=== PATIENT | female | born 2000 | race Caucasian/White ===

== ENCOUNTER 2024-03-22 03:03 | Inpatient (IN) | payer SELFPAY, OTHER ==
[2024-03-22] VITALS (17 sets, daily range): BP systolic 84–112; BP diastolic 45–66; PULSE 57–77; RESP 14–18; TEMP 36.1–37.2; O2SAT 14–100; BMI 27.8
[2024-03-22] MEDS: Lactated Ringers 1,000 ML 999 ML IV ×3 (03:09→05:36)
[2024-03-22] MEDS: Betamethasone/Betamethasone 30 MG/5 ML Vial 12 MG IM (03:09)
[2024-03-22 03:29] LABS: Absolute Lymphocyte Count 1.51 X10^3/uL (0.83-4.51); Absolute Neutrophil Count 13.2 X10^3/uL (2.0-7.7); Basophil# 0.05 X10^3/uL; Basophil% 0.3 % (0-1); Eosinophil# 0.02 X10^3/uL; Eosinophils% 0.1 % (0-5); Hematocrit 37.8 % (37-47); Hemoglobin 12.5 g/dL (12.0-15.0); Lymphocyte # 1.51 X10^3/ul (0.83-4.51); Lymphocyte % 9.5 % (19-41); Mean Corp Hgb Conc 33.1 g/dL (32-36); Mean Corpuscular Hgb 28.6 pg (27.0-32.0); Mean Corpuscular Volume 86.5 fL (81-99); Mean Platelet Vol. 10.3 fl (6.2-12.0); Monocyte# 0.99 X10^3/uL; Monocyte% 6.2 % (0-10); NRBC Flagged by Analyzer 0 % (0-5); Neutrophil # 13.16 X10^3/uL (2.7-7.7); Neutrophil % 82.8 % (47-70); Platelet Count 238 K/mm3 (150-450); RBC Distribution Width CV 13.4 % (11.6-14.6); RBC Distribution Width SD 41.7 fl (35.1-43.9); Red Blood Count 4.37 M/mm3 (4.2-5.4); White Blood Count 15.9 K/mm3 (4.4-11.0)
[2024-03-22 03:47] LABS: ALB/GLOB Ratio 0.7 RATIO (0.9-2.4); AST(SGOT) 34 U/L (15-37); Alanine Aminotransfer ALT/SGPT 42 U/L (13-56); Albumin, Serum 2.9 g/dL (3.2-5.0); Alkaline Phosphatase 94 U/L (45-117); Anion Gap 10 (5-15); BUN 6 mg/dL (7-18); BUN/Creat Ratio 12.7 RATIO (10-20); Calcium,Total 9.1 mg/dL (8.5-10.1); Chloride 105 mmol/L (98-107); Creatinine, Serum 0.47 mg/dL (0.55-1.02); EST Glomerular Filtration Rate 169 mL/min (>60); Est Glom Filt Rate - Afr Amer 205 mL/min (>60); Estimated Creatinine Clearance 166.81 ml/min; Globulin 4.3 g/dL (2.2-4.2); Glucose 93 mg/dL (74-106); Potassium 3.5 mmol/L (3.5-5.1); Protein, Total 7.2 g/dL (6.4-8.2); Sodium Level 136 mmol/L (136-145)
[2024-03-22 04:04] LABS: Syphilis Antibodies Non-reactive
[2024-03-22 04:18] LABS: Color, Urine Yellow (Yellow); Glucose, Dipstick Normal (Normal); Leukocyte Esterase-Dipstick Negative /ul (Negative); Nitrite-Dipstick Negative (Negative); Occult Blood-Urine Negative /ul (Negative); Protein-Dipstick 15 mg/dl (Negative); Urine Bilirubin Dipstick Negative (Negative); Urine Clarity Clear (Clear); Urine Urobilinogen Normal (Normal)
[2024-03-22 04:20] LABS: Ketone-Dipstick 150 mg/dl (Negative)
[2024-03-22] MEDS: Ampicillin 2 GM in 0.9% Normal Saline (100mL MB+) 100 ML IV (04:27)
--- NOTE | 2024-03-22 05:30 | HP.PCM.OB_ITS ---
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 She denies any vaginal bleeding or loss of fluid and has been temo since 6:00 last night. Upon initial presentation she had a heart rate deceleration down into the 50s x 2 minutes bedside ultrasound parameters unable to obtain AC but BPD and HC measuring 32 to 33 weeks PFSH PFSH Home Medications ?Medication ?Instructions ?Recorded ?Last Taken ?Type vit no.95-ferrous 1 tab PO DAILY 03/22/24 03/21/24 History fumarate 28 mg-folic acid 800 mcg tablet () Allergy/AdvReac Type Severity Reaction Status Date / Time No Known Allergies Allergy Verified 03/22/24 03:06 Social History Smoking Status: Former smoker History Elective abortions Hx Para 0 Spontaneous abortions Hx # Term Pregnancies Ectopic pregnancies Hx # Pregnancies Multiple births # of living children NST FHR Rate Baby A Baseline: 140-160 Variability:: Minimal (to moderate) Accelerations:: 15 x 15 Decelerations:: Variable and Prolonged NST Reactive:: Yes FHR Category:: Category II Uterine Activity:: q 2-3 ROS Constitutional Constitutional: Reports systems reviewed and no addt'l complaints, except as documented ENT HEENT: Reports systems reviewed and no addt'l complaints, except as documented Cardiovascular Cardiovascular: Reports systems reviewed and no addt'l complaints, except as documented Respiratory/Chest Respiratory/Chest: Reports systems reviewed and no addt'l complaints, except as documented Gastrointestinal Gastrointestinal: Reports systems reviewed and no addt'l complaints, except as documented and nausea; Denies abdominal pain Genitourinary Genitourinary: Reports systems reviewed and no addt'l complaints, except as docu mented, contractions Details: present and frequency (regular ) and movement Details: present Musculoskeletal Musculoskeletal: Reports systems reviewed and no addt'l complaints, except as documented Integumentary Integumentary: Reports as per HPI Neurologic Neurologic: Reports systems reviewed and no addt'l complaints, except as documented Endocrine Endocrinology: Reports systems reviewed and no addt'l complaints, except as documented Vital Signs Vital Signs Vital Signs: 03/22/24 02:50 03/22/24 02:50 03/22/24 02:50 Temperature Temperature Source Temporal Pulse Rate 75 Respiratory Rate Blood Pressure 112/65 BP Systolic 112 BP Diastolic 65 03/22/24 02:50 03/22/24 02:50 Temperature 97.0 F L Temperature Source Pulse Rate Respiratory Rate 18 Blood Pressure BP Systolic BP Diastolic Weight Weight: 152 lb 9.6 oz Body Mass Index (BMI) 27.8 Physical Exam Const alert, oriented x3 and healthy appearing Constitutional Narrative: uncomfortable with contractions HEENT normocephalic and moist oral mucous membranes Head and Scalp: atraumatic Neck full ROM, no lymphadenopathy, supple and thyroid normal General: trachea midline Thyroid: thyroid normal Lymph Lymphatic: no lymphadenopathy noted Chest inspection of chest normal Resp normal respiratory effort Cardio regular rate GI normal to inspection, nondistended, normoactive bowel sounds, soft to palpation and non-tender Inspection: gravid external exam normal Bimanual Exam - Vag & Uterus: uterus non-tender Manual OB Exam: estimated gestational size appropriate, presentation cephalic, dilated 5, effaced 90 and station -2 Extremity normal to inspection General Extremity: Negative for edema Skin no rashes or lesions noted Neuro deep tendon reflexes 2+ bilaterally Motor Exam: strength 5/5 throughout and clonus absent Psych mental status grossly normal Labs Labs Labs: Blood Type AB NEGATIVE Antibody Screen NEGATIVE Hct 37.8 % (37-47) Hgb 12.5 g/dL (12.0-15.0) Syphilis Total Ab Non-reactive Rubella IgG Antibody Pending Hep Bs Antigen Pending Hepatitis C Antibody Pending HIV 1&2 Antibody Pending Assessment & Plan (1) Limited care in third trimester: (2) 35 weeks gestation of : (3) Category II heart rate tracing during labor and delivery: (4) labor: PLAN: Plan Admit Celestone given, CBC type and screen CMP fibrinogen. Ampicillin given. Initial expectant management. IV fluids given and heart rate stabilized enough for monitoring. Prepare for vaginal delivery or if recurrent decelerations.
[2024-03-22 05:43] LABS: International Normalized Ratio 1.1; Prothrombin Time (Protime)PT. 13.7 SECONDS (11.7-14.9)
[2024-03-22 05:44] LABS: Fibrinogen 682 mg/dl (203-444); Partial Thromboplast Time 35.7 Seconds (24.1-36.2)
[2024-03-22] MEDS: Sodium Citrate/Citric Acid 30 ML UDC PO (05:52)
[2024-03-22] MEDS: Cefazolin 2 GM in 0.9% Normal Saline (100mL Bag) 100 ML IV (06:11)
[2024-03-22] MEDS: Azithromycin 500 MG in Dextrose 5%-Water (250mL Bag) 250 ML 250 MG IV (06:54)
[2024-03-22] MEDS: Ketorolac 30 MG/ML Syringe IV ×3 (07:34→19:23)
[2024-03-22] MEDS: HYDROmorphone 1 MG/ML Syringe IV ×2 (07:34→12:04)
[2024-03-22] MEDS: Oxytocin 15 Units/NS 250ml 15 UNITS/250 ML IV.SOLN 83 UNITS IV (07:38)
--- NOTE | 2024-03-22 07:49 | OP.PCM_ITS ---
Assessment & Plan (1) Category II heart rate tracing during labor and delivery: (2) labor: (3) 35 weeks gestation of : (4) Limited care in third trimester: Maternal Data Information Final MICHAEL Source: LMP Details Operative Information Date of Procedure: 03/22/24 Pre-Operative Diagnosis: see a/p diagnoses Post-Operative Diagnosis: same Indications Narrative: surgeon: Kristan Levin MD Classification: [id number] Procedure Type: low transverse fuel cell repairer #2: Yris Vásquez Type of Anesthesia: General Special Medications: none Drain: Aaron to straight drain Estimated Blood Loss: 800 Fluids Replaced: crystalloid Procedure Start Time: 05:55 Procedure Stop Time: 07:05 Findings Description of Procedure: The patient was placed in the dorsal supine position with leftward tilt. Patient was prepped and draped in the normal sterile fashion. General anesthesia was induced and patient intubated. Pfannenstiel skin incision was made with the scalpel and carried through to the underlying layer of fascia with the scalpel. Fascia was nicked in the midline and the incision extended laterally. The peritoneum was entered digitally. The incision was stretched and a low transverse uterine incision was made with the scalpel. The infant's head was delivered atraumatically followed by the anterior and posterior shoulders without complication the rest of the delivered. The cord was clamped and cut and the infant was handed off to awaiting nurse. The placenta was delivered spontaneously immediately following and was noted to be intact and have a three-vessel cord. The uterus was exteriorized cleared of all clots and debris, and the incision was closed in a single layer closure using #1 Monocryl. The ovaries and fallopian tubes were noted to be within normal limits. The uterus was returned to the maternal abdomen and gutters were cleared of all clots and debris. The peritoneum was closed with 3-0 Monocryl in a running fashion. Fascia was closed with 0 PDS in a running fashion. Subcutaneous tissue was copiously irrigated and the skin was closed with 3-0 Monocryl in a subcuticular fashion. Mepilex dressing was applied without complication. Patient was taken to recovery in stable condition. It was discussed with the patient that based on the clinical information obtained during this encounter, combined with her history, at this time I would recommend vaginal or for future deliveries if further pregnancies are desired. Placental Delivery Description: Spontaneous Placenta Disposition: [facility] Cord Vessel Description: 3 Vessels Delayed Cord Clamping: No Complications Risks of Surgery Discussed w/Patient: Bleeding, Infection, Need for Future C- Sections and Injury to surrounding structure(s) including bowel and bladder Complications: none Admit VTE Documentation VTE Present on Admission: No VTE Mechan Device Prophylaxis: SCD's Procedures Urinary/Genital [id number]: 16257 delivery+PP Care([facility])
--- NOTE | 2024-03-22 07:49 | PCM.PN.BLA ---
Progress Note Recurrent late decelerations despite IV fluids artificial rupture membranes for thick meconium patient 6 to 7 cm dilated multiple position changes attempted decision made for primary low-transverse .
--- NOTE | 2024-03-22 07:53 | DCINST_ITS ---
Discharge Instructions Diet Discharge Diet: No restrictions Activity Discharge Activity: May Not Drive (for 2 weeks or while taking narcotic pain medications.), May Shower and May Take a Tub Bath (in 7 days) May shower in (days): 0 May resume sexual activity in: 4-6 weeks Weight Bearing Status: Full weight bearing Lifting Restrictions: 20 pounds Dressing / Incision Call your doctor if your incision/area has: Continuous Slow Oozing, Sudden Increased Bleeding, Increased Pain/ Swelling, Increased Redness and Foul Smelling Discharge Call your doctor if you observe: Fever of 101 or Higher and Using more than 1 pad per hour (for 2 hours) Suture Line Care: Avoid Pulling/Pushing and Avoid Pinching/Bending Cleanse incision/area with: Soap & Water and Keep Dressing Clean & Dry Follow Up Care Please Follow Up With: Kristan Levin MD When: Call [phone] to make an appointment for an incision check in 1-2 weeks. Test Results: Test results from this visit will be discussed in further detail at your follow- up appointment, if applicable. Discharge Plan Admission Admit Date/Time: 03/22/24 03:03 Attending Provider: Kristan Levin Primary Care Provider: Vanessa PhysicianAgnieszka Primary Discharge Orders/Prescriptions Prescriptions: New oxycodone-acetaminophen [Percocet] 5-325 mg tablet 1 tab PO Q6H PRN (Reason: pain) 7 Days Qty: 10 0RF naproxen 500 mg tablet 500 mg PO BID PRN PRN (Reason: Pain) Qty: 30 1RF No Action PNV cmb#95-ferrous fumarate-FA [] 28 mg iron- 800 mcg tablet 1 tab PO DAILY Referrals / Follow Up: Care PhysicianAgnieszka Primary [Primary Care Provider] - Disposition Disposition (needs filled in before D/C Order can be placed): Home, Self Care
[2024-03-22 08:08] LABS: HIV - WCH Non-Reactive (Nonreactive); Rubella IgG Non-Reactive (Nonreactive)
[2024-03-22 09:04] LABS: Hepatitis B Surface Antigen Non-Reactive (Nonreactive); Hepatitis C Antibody Non-Reactive (Nonreactive)
[2024-03-22] MEDS: Senna/Docusate Sodium 1 Tablet PO (09:08)
[2024-03-22] MEDS: Lactated Ringers 1,000 ML 100 ML IV (09:08)
[2024-03-22] MEDS: Acetaminophen 500 MG Tablet 1000 MG PO ×2 (12:04→17:53)
[2024-03-22] MEDS: Enoxaparin 40 MG/0.4 ML Syringe SC (17:53)
--- NOTE | 2024-03-22 18:53 | NURSING ---
Discussed with pt about Rubella non-immune status. VIS info given. Pt denies MMR.
[2024-03-22] MEDS: 0.9% Saline Lock 10 ML Syringe IV (19:23)
[2024-03-23 00:04] VITALS: BP 86/50; PULSE 64; RESP 16; TEMP 36.1; O2SAT 98
[2024-03-23] MEDS: Ketorolac 30 MG/ML Syringe IV (01:22)
[2024-03-23] MEDS: 0.9% Saline Lock 10 ML Syringe IV (01:22)
[2024-03-23 04:57] VITALS: BP 94/45; PULSE 66; RESP 16; TEMP 36.1; O2SAT 98
[2024-03-23] MEDS: Acetaminophen 500 MG Tablet 1000 MG PO ×4 (06:13→18:03)
[2024-03-23 06:38] LABS: Hematocrit 35.5 % (37-47); Hemoglobin 11.6 g/dL (12.0-15.0); Mean Corp Hgb Conc 32.7 g/dL (32-36); Mean Corpuscular Hgb 28.9 pg (27.0-32.0); Mean Corpuscular Volume 88.5 fL (81-99); Mean Platelet Vol. 10.1 fl (6.2-12.0); Platelet Count 204 K/mm3 (150-450); RBC Distribution Width CV 14.1 % (11.6-14.6); RBC Distribution Width SD 45.2 fl (35.1-43.9); Red Blood Count 4.01 M/mm3 (4.2-5.4); White Blood Count 15.2 K/mm3 (4.4-11.0)
[2024-03-23] MEDS: Naproxen 500 MG Tablet PO ×2 (07:14→15:42)
--- NOTE | 2024-03-23 08:02 | PCM.PN.OB ---
Subjective Subjective Patient is walking about her room without complaints other than, just feeling sore. She states that she slept on an off during the night. Lochia is mild and pain is minimal. no Shortness of breath or chest pain. Objective Data Objective Data Vital Signs: Vital Signs Temp Pulse Resp BP Pulse Ox O2 Del Method 97.0 F L 66 16 94/45 L 98 Room Air 03/23/24 04:57 03/23/24 04:57 03/23/24 04:57 03/23/24 04:57 03/23/24 04:57 03/23/24 04:57 Oxygen Delivery Method Room Air Weight: 152 lb 9.6 oz Body Mass Index (BMI) 27.8 Intake & Output: Intake and Output for Last 24 Hours 03/21/24 03/22/24 03/23/24 23:59 23:59 23:59 Intake Total 4829.83 / 4829.83 Output Total 3650 / 3650 100 / 100 Balance 1179.83 / 1179.83 -100 / -100 Lab / Micro Data 03/23/24 06:28 03/22/24 03:10 Labs: Laboratory Results - last 24 hr 03/22/24 04:35: Hep Bs Antigen Non-Reactive, Hepatitis C Antibody Non-Reactive, HIV 1&2 Antibody Non-Reactive, Rubella IgG Antibody Non-Reactive 03/23/24 06:28: WBC 15.2 H, RBC 4.01 L, Hgb 11.6 L, Hct 35.5 L, MCV 88.5, MCH 28.9, MCHC 32.7, RDW Std Deviation 45.2 H, RDW Coeff of Cornelio 14.1, Plt Count 204, MPV 10.1 Micro: Microbiology 03/22/24 02:22 Urine, Clean Catch Urine Culture - Final Mixed Gram Positive Organisms 03/22/24 04:35 Urine, Clean Catch Chlamydia/Neisseria (PCR) - Final ROS Constitutional Constitutional: Reports systems reviewed and no addt'l complaints, except as documented Cardiovascular Cardiovascular: Denies chest pain, dizziness, dyspnea or irregular heart rhythm Respiratory/Chest Respiratory/Chest: Denies cough, pain on inspiration or shortness of breath at rest Gastrointestinal Gastrointestinal: Denies abdominal pain, nausea or vomiting Genitourinary Genitourinary: Denies burning urination Musculoskeletal Musculoskeletal: Denies muscle cramps, muscle spasms or muscle weakness Neurologic Neurologic: Denies confusion, dizziness, headache(s) or lack of coordination Psychiatric Psychiatric: Denies anxiety, behavioral changes or depression Physical Exam HEENT normocephalic Resp normal respiratory effort and normal air movement GI soft to palpation, non-tender and non-distended Rectal Exam: other Other Details: Incision is clean, dry, and intact no CVA tenderness Extremity normal to inspection General Extremity: edema bilateral (trace ) Assessment & Plan (1) delivery delivered: COMMENT: estephania's patient 35 week PTL LTCS cat II tracing boy SM (2) Category II heart rate tracing during labor and delivery: (3) labor: (4) 35 weeks gestation of : (5) Limited care in third trimester: PLAN: Plan s/p LTCS PPD # 1 1. routine post care 2. breast feeding- support given 3. rh positive 4. rubella immune
[2024-03-23 08:15] VITALS: BP 97/59; PULSE 66; RESP 16; TEMP 36.3; O2SAT 98
[2024-03-23] MEDS: Senna/Docusate Sodium 1 Tablet PO (10:14)
[2024-03-23 12:51] VITALS: BP 99/64; PULSE 77; RESP 16; TEMP 36.4
[2024-03-23 15:51] VITALS: BP 88/54; PULSE 77; RESP 16; TEMP 36.4; O2SAT 98
[2024-03-23] MEDS: Enoxaparin 40 MG/0.4 ML Syringe SC (18:03)
== END 2024-03-23 19:14 | disposition home or self-care (01) | DRG 786 ==
LOC: WP 03:22
PROVIDERS: Admitting Provider Obstetrics & Gynecology; Referring Provider Obstetrics & Gynecology; Visit Provider Obstetrics & Gynecology
DX: O76 Abnormality in fetal heart rate and rhythm complicating labor and delivery (principal); O60.14X0 Preterm labor third trimester with preterm delivery third trimester, not applicable or unspecified; Z37.0 Single live birth; Z3A.35 35 weeks gestation of pregnancy; Z87.891 Personal history of nicotine dependence
CPT/HCPCS: 59025; 59050; 76815; 80053; 81002; 85025; 85027; 85384; 85610; 85730; 86703; 86762; 86780; 86803; 86850; 86900; 86901; 87086; 87088; 87340; 87491; 87591; 99221; J7120; A4216; G0378; J0702